=== PATIENT | female | born 1995 | race Caucasian/White ===

== ENCOUNTER 2018-08-07 03:06 | Emergency (ER) | payer BC, OTHER ==
[2018-08-07 03:40] VITALS: BMI 28.3
--- NOTE | 2018-08-07 03:59 | PDOC ---
Attending Attestation - Resident Resident Name: Juan Daniel Amin - ED Attending Attestation I have performed the following: I have examined & evaluated the patient, The case was reviewed & discussed with the resident, I agree w/resident's findings & plan, Exceptions are as noted - HPI HPI: 08/07/18 05:41 23 years old presents emergency Department 1 week abdominal pain as well as one- day history of nonbilious nonbloody emesis pain is periumbilical sharp persistent concent was worse today after food. Last menstrual period approximately 1 month ago no vaginal symptoms - Physicial Exam PE: 08/07/18 05:42 Vitals: Triage Vital signs reviewed General Appearance: no acute distress, well nourished well developed, Head: Atraumatic, Neck: Supple;No Nucal rigidity Chest Wall: Nontender Cardiac: Regular rate and rhythym, no murmurs, no rubs, no gallops, Lungs: Clear to auscultation bilateral, good air movement bilaterally, Abdomen: Soft, non distended, normal bowel sounds, mild epigastric tenderness to palpation, no rebound, no guarding : See resident's note Extremities: Full range of motion to all extremities, no cyanosis, clubbing, or edema Skin: Warm and dry, no rashes or lesions, no rash, no petechiae Psych: normal mood, normal affect - Medical Decision Making 08/07/18 06:13 Epigastric pain 4 episodes nonbilious nonbloody emesis patient's urinalysis demonstrated patient is currently Patient was unaware of this informed of results In light of this a quantitative hCG was added onto patient's blood work and a transvaginal ultrasound has been ordered 7am to f/u labs, us and reasses pt.
--- NOTE | 2018-08-07 04:16 | PDOC ---
History of Present Illness - General Chief Complaint: Pain, Acute Stated Complaint: ABDOMINAL PAIN Time Seen by Provider: 08/07/18 03:54 History Source: Patient Exam Limitations: No Limitations - History of Present Illness Initial Comments: 08/07/18 04:07 23 yo female pmh of anemia (takes iron tablets) presents to the ED for 1 week of abdominal pain and 1 day of NB/NB vomiting. Patient states the pain is periumbilical radiates laterally on both sides and described as sharp and stabbing. Pain is made worse right away with food and patient unable to keep food down today. LMP 1 month ago and patient expecting menstrual period very soon. Recently switched from explanon to OCPs. Denies hx of STDs, pain with sex , vaginal discharge, burning with urination, recent illness, F/C, back pain, CP or SOB. Past History - Past Medical History Allergies/Adverse Reactions: Allergies Allergy/AdvReac Type Severity Reaction Status Date / Time No Known Allergies Allergy Verified 08/07/18 03:38 Home Medications: Ambulatory Orders NK [No Known Home Medication] 08/07/18 Asthma: No Cancer: No Cardiac Disorders: No Diabetes: No HTN: No Seizures: No Thyroid Disease: No - Suicide/Smoking/Psychosocial Hx Smoking History: Never smoked Have you smoked in the past 12 months: No Information on smoking cessation initiated: No Hx Alcohol Use: No Drug/Substance Use Hx: No Hx Substance Use Treatment: No Review of Systems - Review of Systems Constitutional: Yes: Fever (1 week). No: Chills Respiratory: No: Shortness of Breath Cardiac (ROS): No: Chest Pain ABD/GI: Yes: Nausea, Vomiting (3 NB/NB episodes today), Other (periumbilical abdominal pain). No: Constipated, Diarrhea : No: Burning, Dysuria Musculoskeletal: No: Back Pain *Physical Exam - Vital Signs Last Vital Signs Temp Pulse Resp BP Pulse Ox 98.4 F 70 20 121/77 100 08/07/18 03:10 08/07/18 03:10 08/07/18 03:10 08/07/18 03:10 08/07/18 03:10 - Physical Exam General Appearance: Yes: Nourished, Appropriately Dressed. No: Apparent Distress HEENT: positive: EOMI Respiratory/Chest: positive: Lungs Clear, Normal Breath Sounds. negative: Crackles, Wheezing Cardiovascular: positive: Regular Rhythm, Regular Rate, S1, S2. negative: Edema , JVD, Murmur Vascular Pulses: Dorsalis-Pedis (R): 4+, Doralis-Pedis (L): 4+ Female Pelvic Exam: positive: normal external exam, cervical os closed, normal adnexa, normal size ovaries. negative: CMT, discharge, lesions Gastrointestinal/Abdominal: positive: Normal Bowel Sounds, Flat, Soft, Tenderness (minimal). negative: Pulsatile Mass, Distended, Guarding, Rebound Extremity: positive: Normal Capillary Refill Integumentary: positive: Normal Color, Dry, Warm Neurologic: positive: Fully Oriented, Alert, Normal Mood/Affect, Normal Response ED Treatment Course - LABORATORY CBC & Chemistry Diagram: 08/07/18 04:30 08/07/18 04:30 Medical Decision Making - Medical Decision Making 08/07/18 05:54 23 yo female presents with 1 week of periumbilcal abdominal pain and NB/NB vomiting 3 episodes today. 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 No discharge Will reassess after US 08/07/18 07:15 Beta HCG [id number] IUP should be present on transvaginal US Sign out to Dr. Nieto
[2018-08-07] MEDS ORDERED: ONDANSETRON 4 MG/2 ML VIAL IVPUSH ONE (04:18)
[2018-08-07] MEDS ORDERED: ACETAMINOPHEN 1000 MG/100 ML VIAL (NON FORMULARY) IVPB ONE (04:18)
[2018-08-07] MEDS ORDERED: SODIUM CHLORIDE 0.9% 1000 ML INFUS.BAG IV ONE (04:18)
[2018-08-07 04:49] LABS: BASO % 0.2 % (0-2.0); EOS % 0.6 % (0-4.5); HEMATOCRIT 39.8 % (32.4-45.2); HEMOGLOBIN 13.3 GM/dL (10.7-15.3); LYMPH % 18.4 % (8-40); MCHC 33.3 g/dl (32.0-36.0); MEAN PLT VOLUME 8.9 fl (7.5-11.1); MONO % 7.7 % (3.8-10.2); NEUT % 73.1 % (42.8-82.8); PLATELET COUNT 240 K/MM3 (134-434); RBC 4.58 M/mm3 (3.60-5.2); RDW 12.7 % (11.6-15.6); WHITE BLOOD COUNT 9.3 K/mm3 (4.0-10.0)
[2018-08-07] MEDS ORDERED: ONDANSETRON 4 MG/2 ML VIAL ONE (04:49)
[2018-08-07 04:59] LABS: URINE APPEARANCE CLEAR; URINE BILIRUBIN NEGATIVE (<2.0 mg/dL); URINE COLOR LTYELLOW; URINE GLUCOSE (UA) NEGATIVE (NEGATIVE); URINE KETONE 2+ (NEGATIVE); URINE LEUK ESTERASE TRACE (NEGATIVE); URINE NITRITE NEGATIVE (NEGATIVE); URINE PROTEIN NEGATIVE (NEGATIVE); URINE UROBILINOGEN NEGATIVE mg/dL (0.2-1.0)
[2018-08-07] MEDS ORDERED: ACETAMINOPHEN INJECTION 100 ML IVPB ONE (05:02)
[2018-08-07 05:24] LABS: EPI CELLS RARE /HPF (FEW); HCG,QUALITATIVE URINE Positive; URINE MUCUS RARE
[2018-08-07 05:27] LABS: ALBUMIN 3.7 g/dl (3.4-5.0); ALK PHOS 48 U/L (45-117); ANION GAP 8 MMOL/L (8-16); BILIRUBIN,TOTAL 0.6 mg/dL (0.2-1); BLOOD UREA NITROGEN 6 mg/dL (7-18); CALCIUM 8.8 mg/dL (8.5-10.1); CHLORIDE 105 mmol/L (98-107); CO2 24 mmol/L (21-32); CREATININE 0.5 mg/dL (0.55-1.3); GLUCOSE,RANDOM 79 mg/dL (74-106); LIPASE 75 U/L (73-393); POTASSIUM 3.6 mmol/L (3.5-5.1); SGOT/AST 21 U/L (15-37); SGPT/ALT 31 U/L (13-61); SODIUM 137 mmol/L (136-145)
[2018-08-07 06:31] VITALS: BP 110/67; PULSE 69; TEMP 98.1
--- NOTE | 2018-08-07 07:28 | PDOC ---
*Physical Exam - Vital Signs Last Vital Signs Temp Pulse Resp BP Pulse Ox 98.1 F 69 16 110/67 97 08/07/18 06:29 08/07/18 06:29 08/07/18 06:29 08/07/18 06:29 08/07/18 06:29 - Physical Exam General Appearance: Yes: Appropriately Dressed HEENT: positive: Normal Voice, Symmetrical Respiratory/Chest: positive: Lungs Clear, Normal Breath Sounds Cardiovascular: positive: Regular Rhythm, Regular Rate Gastrointestinal/Abdominal: positive: Soft ED Treatment Course - LABORATORY CBC & Chemistry Diagram: 08/07/18 04:30 08/07/18 04:30 - ADDITIONAL ORDERS Additional order review: Laboratory Results 08/07/18 08/07/18 04:30 04:30 Sodium 137 Potassium 3.6 Chloride 105 Carbon Dioxide 24 Anion Gap 8 BUN 6 L Creatinine 0.5 L Creat Clearance w eGFR > 60 Random Glucose 79 Calcium 8.8 Total Bilirubin 0.6 AST 21 ALT 31 Alkaline Phosphatase 48 Total Protein 7.0 Albumin 3.7 Lipase 75 Beta HCG, Quant 58051.3 Urine Color Ltyellow Urine Appearance Clear Urine pH 6.0 Ur Specific [place] 1.016 Urine Protein Negative Urine Glucose (UA) Negative Urine Ketones 2+ H Urine Blood Negative Urine Nitrite Negative Urine Bilirubin Negative Urine Urobilinogen Negative Ur Leukocyte Esterase Trace Urine WBC (Auto) 8 Urine RBC (Auto) 1 Ur Epithelial Cells Rare Urine Mucus Rare Urine HCG, Qual Positive 08/07/18 04:30 RBC 4.58 MCV 87.0 MCHC 33.3 RDW 12.7 D MPV 8.9 Neutrophils % 73.1 Lymphocytes % 18.4 D Monocytes % 7.7 Eosinophils % 0.6 D Basophils % 0.2 - Medications Given in the ED: ED Medications Discontinued Medications Generic Name Dose Route Start Last Admin Trade Name Freq PRN Reason Stop Dose Admin Acetaminophen 1,000 mg 08/07/18 04:18 08/07/18 05:11 Ofirmev Injection - IVPB 08/07/18 04:19 1,000 mg ONCE ONE Administration Ondansetron HCl 4 mg 08/07/18 04:18 08/07/18 05:00 Zofran Injection IVPUSH 08/07/18 04:19 4 mg ONCE ONE Administration Sodium Chloride 1,000 ml 08/07/18 04:18 08/07/18 05:01 Normal Saline - IV 08/07/18 04:19 1,000 ml ONCE ONE Administration Medical Decision Making - Medical Decision Making 08/07/18 07:[address] Amin 23F w/ pmhx of anemia presents with 1 week hx of abdominal pain and 1 day h/o nonbloody, nonbilious vomiting. Admits to periumbilical pain radiating bilaterally, recently switched from Explanon to OCPs. Per Dr. Amin's pelvic exam, no adnexal tenderness. -b-HCG ~64,000 -Await transvaginal u/s to confirm IUP. 08/07/18 10:38 Pt's abdominal discomfort improved since coming to the hospital. On PE, abd soft NT/ND. No evidence of ectopic . -Transvaginal u/s showed single live IUP w/ estimated sonographic gestational age of 7 weeks 2 days. heart activity was documented. Both ovaries appear unremarkable. 08/07/18 11:14 Pt given PO trial of crackers and water. Tolerated PO with no nausea/vomiting. D /w pt need to follow up with PCP. Referral given to pt to follow up with OBGYN within 1 week for care. DC to home. *DC/Admit/Observation/Transfer Diagnosis at time of Disposition: Abdominal pain Qualifiers: Abdominal location: periumbilical Qualified Code(s): R10.33 - Periumbilical pain Qualifiers: Weeks of gestation: 12 weeks Qualified Code(s): Z3A.12 - 12 weeks gestation of - Discharge Dispostion Disposition: HOME Condition at time of disposition: Improved Decision to Admit order: No - Referrals Referrals: Tucker Kwan MD [Primary Care Provider] - Julian Ayoub MD [Staff Physician] - - Patient Instructions Additional Instructions: You were seen in the ED for complaints of abdominal pain. In the ED, a transvaginal ultrasound was done that confirmed an intrauterine . You were given Zofran and Tylenol for your nausea and pain. There is no acute need for hospitalization at this time. You are being discharged home. Please follow up with your primary care physician within 1 week. Please also follow up with an OBGYN. You have been given a referral for Dr. Ayoub. Please make an appointment within 1 week. If you experience persistent fever/chills, worsening abdominal pain, nausea, vomiting, chest pain, or shortness of breath, please proceed to your nearest emergency room immediately. - Post Discharge Activity
== END 2018-08-07 11:24 | disposition home or self-care (01) ==
LOC: JER 03:06
PROC: 3E0337Z Introduction of Electrolytic and Water Balance Substance into Peripheral Vein, Percutaneous Approach (ICD-10-PCS; principal; 2018-08-07)
PROC: 3E033NZ Introduction of Analgesics, Hypnotics, Sedatives into Peripheral Vein, Percutaneous Approach (ICD-10-PCS; 2018-08-07)
PROC: 3E033GC Introduction of Other Therapeutic Substance into Peripheral Vein, Percutaneous Approach (ICD-10-PCS; 2018-08-07)
DX: Z3A.12 12 weeks gestation of pregnancy (principal); R10.33 Periumbilical pain
CPT/HCPCS: 36415; 76817-TC; 80053; 81003; 81015; 83690; 84702; 84703; 85025; 87086; 87186; 96374; 96375; 99283-25; J0131; J7030

== ENCOUNTER 2018-08-12 11:03 | Emergency (ER) | payer OTHER ==
[2018-08-12 11:10] VITALS: TEMP 98.9; BMI 28.3
--- NOTE | 2018-08-12 11:45 | PDOC ---
*Physical Exam - Vital Signs Last Vital Signs Temp Pulse Resp BP Pulse Ox 98.9 F 93 H 18 127/70 100 08/12/18 11:07 08/12/18 11:07 08/12/18 11:07 08/12/18 11:07 08/12/18 11:07 ED Treatment Course - LABORATORY CBC & Chemistry Diagram: 08/12/18 12:37 08/12/18 12:37 Medical Decision Making - Medical Decision Making 08/12/18 17:21 23 yo F presenting to the ER with a complaint of abdominal pain Was seen in the ER several days ago with abd pain Labs reveal Pt discharged feeling better Pt reports that despite getting tylenol, her pain has not impr
[2018-08-12] MEDS ORDERED: ACETAMINOPHEN 500 MG TABLET (FP) PO ONE (12:22)
[2018-08-12] MEDS ORDERED: ACETAMINOPHEN INJECTION 100 ML IVPB ONE (12:42)
[2018-08-12 12:49] LABS: BASO % 0.3 % (0-2.0); EOS % 0.4 % (0-4.5); HEMOGLOBIN 15.1 GM/dL (10.7-15.3); LYMPH % 14.8 % (8-40); MCH 29.7 pg (25.7-33.7); MCHC 34.2 g/dl (32.0-36.0); MEAN CELL VOLUME 86.9 fl (80-96); NEUT % 78.5 % (42.8-82.8); PLATELET COUNT 245 K/MM3 (134-434); RBC 5.07 M/mm3 (3.60-5.2); RDW 12.6 % (11.6-15.6); WHITE BLOOD COUNT 10.6 K/mm3 (4.0-10.0)
--- NOTE | 2018-08-12 12:56 | PDOC ---
History of Present Illness - General Chief Complaint: Pain Stated Complaint: NAUSEA/VOMITING, + PREG. Time Seen by Provider: 08/12/18 11:38 History Source: Patient Exam Limitations: Clinical Condition - History of Present Illness Initial Comments: 08/12/18 12:57 Patient with no sig past medical history 7 weeks present with complain of persistent periumbilical and right pelvic pain for 6 days now with nausea and vomiting. Patient was seen 4 days ago for same symptoms and ultrasound found patient to be 7 weeks . Patient was discharged home with [facility] follow-up but has not followed up yet and report persistent pain with nausea and vomiting. Patient has been taking [id number] nausea medication but report has not been helping. Patient reported has not had bowel movement for 3 days now .Patient denies diarrhea, fever,chills Timing/Duration: other (6 days) Past History - Past Medical History Allergies/Adverse Reactions: Allergies Allergy/AdvReac Type Severity Reaction Status Date / Time No Known Allergies Allergy Verified 08/12/18 11:10 Home Medications: Ambulatory Orders Ondansetron [Zofran Odt -] 4 mg SL TID PRN #12 od.tablet 08/12/18 Pyridoxine HCl (B-6) [Vitamin B6] 50 mg PO HS PRN #12 tablet 08/12/18 Asthma: No Cancer: No Cardiac Disorders: No CVA: No COPD: No Diabetes: No HTN: No Seizures: No Thyroid Disease: No - Immunization History Immunization Up to Date: Yes - Suicide/Smoking/Psychosocial Hx Smoking History: Never smoked Have you smoked in the past 12 months: No Information on smoking cessation initiated: Yes Hx Alcohol Use: No Drug/Substance Use Hx: No Substance Use Type: None Hx Substance Use Treatment: No Review of Systems - Review of Systems Able to Perform ROS?: Yes Is the patient limited Ukrainian proficient: No Constitutional: No: Chills, Fever, Weakness HEENTM: No: Blurred Vision, Double Vision Respiratory: No: Cough, Orthopnea, Shortness of Breath, SOB with Exertion, SOB at Rest, Stridor, Wheezing, Productive cough, Hemoptysis, Other Cardiac (ROS): No: Chest Pain, Edema, Irregular Heart Rate, Lightheadedness, Palpitations, Syncope, Chest Tightness, Other ABD/GI: Yes: See HPI, Constipated, Nausea, Vomiting, Abdominal cramping (herrera- umbilical and R pelvic). No: Abdominal Distended, Abd. Pain w/ defecation, Diarrhea, Rectal Bleeding : No: Burning, Discharge, Flank Pain Musculoskeletal: No: Back Pain All Other Systems: Reviewed and Negative *Physical Exam - Vital Signs Last Vital Signs Temp Pulse Resp BP Pulse Ox 98.9 F 93 H 18 127/70 100 08/12/18 11:07 08/12/18 11:07 08/12/18 11:07 08/12/18 11:07 08/12/18 11:07 - Physical Exam Comments: 08/12/18 13:01 GENERAL: Well developed, well nourished. Awake and alert. No acute distress. CARDIOVASCULAR: Regular rate and rhythm. No murmurs, rubs, or gallops. Distal pulses are 2+ and symmetric. PULMONARY: No evidence of respiratory distress. Lungs clear to auscultation bilaterally. No wheezing, rales or rhonchi. ABDOMINAL: mild suprapubic and RLQ tendernes, Soft. Non-distended. No rebound or guarding. No organomegaly. Normoactive bowel sounds. : MODERATE malodorous discharge in vaginal vault. no visible lesions. no blood in vault. cervical os closed NEUROLOGICAL: Alert, awake, appropriate. Gait is normal without ataxia. PSYCHIATRIC: Cooperative. Good eye contact. Appropriate mood and affect. General Appearance: Yes: Nourished, Appropriately Dressed. No: Apparent Distress ED Treatment Course - LABORATORY CBC & Chemistry Diagram: 08/12/18 12:37 08/12/18 12:37 - ADDITIONAL ORDERS Additional order review: 08/12/18 12:37 RBC 5.07 MCV 86.9 MCHC 34.2 RDW 12.6 MPV 9.0 Neutrophils % 78.5 Lymphocytes % 14.8 Monocytes % 6.0 Eosinophils % 0.4 Basophils % 0.3 - RADIOLOGY Radiology Studies Ordered: Category Date Time Status ABDOMEN US -LIMITED [US] Stat Ultrasound 08/12/18 12:23 Ordered - Medications Given in the ED: ED Medications Discontinued Medications Generic Name Dose Route Start Last Admin Trade Name Freq PRN Reason Stop Dose Admin Acetaminophen 1,000 mg 08/12/18 12:22 08/12/18 12:50 Tylenol - PO 08/12/18 12:23 1,000 mg ONCE ONE Administration Medical Decision Making - Medical Decision Making 08/12/18 13:04 Patient with no significant past medical history and 7 weeks presented with complain of nausea, vomiting with periumbilical and right lower quadrant pain which has been persistent for 6 days. Ultrasound done at previous present for days ago shows IUP . 08/12/18 13:16 CBC, CMP, Beta HCG ordered. abdominal US ordered. patient given Tylenol for pain and zofran for nausea 08/12/18 14:17 CBC shows midly elevated WBC of 10.6. chemistry with no significant findings. abd ultrasound shows gallstone with mild sludging with no gallbladder thickening or evidence of cholecystitis. pt now recall she had a fever of 100.1F yesterday. will consider abd MRI to r/o appendicitis. consult to [facility] placed 08/12/18 18:55 abd MRI shows no acute findings. MRI shows no evidence of appendicitis. Patient stable for discharge. [facility] *DC/Admit/Observation/Transfer Diagnosis at time of Disposition: First trimester Abdominal pain Qualifiers: Abdominal location: lower abdomen, unspecified Qualified Code(s): R10.30 - Lower abdominal pain, unspecified Nausea & vomiting Qualifiers: Vomiting type: unspecified Vomiting Intractability: non-intractable Qualified Code(s): R11.2 - Nausea with vomiting, unspecified - Discharge Dispostion Disposition: HOME Condition at time of disposition: Stable Decision to Admit order: No - Prescriptions Prescriptions: Ondansetron [Zofran Odt -] 4 mg SL TID PRN #12 od.tablet PRN Reason: nausea Pyridoxine HCl (B-6) [Vitamin B6] 50 mg PO HS PRN #12 tablet PRN Reason: vomiting - Referrals Referrals: Julian Ayoub MD [Staff Physician] - - Patient Instructions Additional Instructions: The abdominal MRI was normal. The labs was normal. Take prescribed medication as needed for vomiting. Take Tylenol as needed for pain. Follow-up will referred [facility] - Post Discharge Activity
[2018-08-12 13:11] LABS: URINE APPEARANCE CLEAR; URINE BILIRUBIN NEGATIVE (<2.0 mg/dL); URINE COLOR DKYELLOW; URINE GLUCOSE (UA) NEGATIVE (NEGATIVE); URINE KETONE 2+ (NEGATIVE); URINE LEUK ESTERASE NEGATIVE (NEGATIVE); URINE NITRITE NEGATIVE (NEGATIVE); URINE PROTEIN 1+ (NEGATIVE); URINE UROBILINOGEN NEGATIVE mg/dL (0.2-1.0)
[2018-08-12 13:15] LABS: URINE MUCUS MANY
[2018-08-12 13:27] LABS: ALBUMIN 4.2 g/dl (3.4-5.0); ALK PHOS 58 U/L (45-117); ANION GAP 11 MMOL/L (8-16); BILIRUBIN,TOTAL 0.9 mg/dL (0.2-1); BLOOD UREA NITROGEN 7 mg/dL (7-18); CHLORIDE 101 mmol/L (98-107); CO2 24 mmol/L (21-32); CREATININE 0.6 mg/dL (0.55-1.3); GLUCOSE,RANDOM 82 mg/dL (74-106); POTASSIUM 3.6 mmol/L (3.5-5.1); SGOT/AST 15 U/L (15-37); SGPT/ALT 31 U/L (13-61); SODIUM 136 mmol/L (136-145); TOT PROT 7.6 g/dl (6.4-8.2)
[2018-08-12] MEDS ORDERED: morphine CARPU-JECT 2 MG/1 ML DISP.SYRIN IVPUSH ONE (16:04)
[2018-08-12] MEDS ORDERED: MORPHINE SULFATE 2 MG/ML VIAL ONE (16:11)
[2018-08-12 19:12] VITALS: BP 123/74; PULSE 84
== END 2018-08-12 19:12 | disposition home or self-care (01) ==
LOC: JER 11:03
PROC: 3E033NZ Introduction of Analgesics, Hypnotics, Sedatives into Peripheral Vein, Percutaneous Approach (ICD-10-PCS; principal; 2018-08-12)
DX: O26.891 Other specified pregnancy related conditions, first trimester (principal); Z3A.01 Less than 8 weeks gestation of pregnancy; R10.30 Lower abdominal pain, unspecified; R11.2 Nausea with vomiting, unspecified
CPT/HCPCS: 36415; 74181-TC; 76705-TC; 80053; 81003; 81015; 84702; 85025; 87086; 87491; 87591; 87661; 96374; 99283-25